=== PATIENT | female | born 1995 | race Caucasian/White ===

== ENCOUNTER 2016-04-06 21:44 | Emergency (ER) | payer OTHER ==
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
[2016-04-07 01:11] VITALS: BP 124/77
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
== END 2016-04-07 01:11 | disposition home or self-care (01) ==
LOC: ED 21:44
DX: S60.229A Contusion of unspecified hand, initial encounter (principal); S00.93XA Contusion of unspecified part of head, initial encounter; M25.519 Pain in unspecified shoulder; V49.9XXA Car occupant (driver) (passenger) injured in unspecified traffic accident, initial encounter; Y93.9 Activity, unspecified; Y92.9 Unspecified place or not applicable; Y99.9 Unspecified external cause status
CPT/HCPCS: 70450; 99283

== ENCOUNTER 2018-01-22 21:07 | Emergency (ER) | payer OTHER ==
[2018-01-22] MEDS ORDERED: NS 0.9% 1000 ML* 1,000 ML IV ONE (22:25)
--- NOTE | 2018-01-22 22:29 | ED ---
GI/ HPI - HPI Summary HPI Summary: 22 year old female presents with intermittent abdominal pain since . Patient states on she induced vomiting and felt better on . The abdominal pain returned today and she has not felt relief. Endorses nausea, upper abdominal pain, a "funny feeling" in her chest, worsening pain with deep breath. Denies fevers, chills, diarrhea, constipation, SOB, headache. unknown if has calf pain. She states the pain today is constant and sharp in nature. She states the pain radiates to her back. Denies urinary symptoms like frequency , urgency, and blood in urine. Patient has history of PCOS, lucero's, and anorexia. uncle had a blood clot. no abnormal vaginal discharge. - History of Current Complaint Chief Complaint: EDAbdPain Time Seen by Provider: 01/22/18 22:08 Stated Complaint: ABD PAIN Pain Intensity: 9 - Allergy/Home Medications Allergies/Adverse Reactions: Allergies Allergy/AdvReac Type Severity Reaction Status Date / Time No Known Allergies Allergy Verified 04/06/16 22:13 Home Medications: Home Medications BuPROPion XL* [Bupropion XL*] 300 mg PO DAILY 01/23/18 [History Confirmed ] FLUoxetine CAP* [Prozac CAP*] 20 mg PO DAILY 01/23/18 [History Confirmed ] Levothyroxine Sodium 150 mcg PO DAILY 01/23/18 [History Confirmed 01/23/18] Metformin HCl [Metformin HCl ER] 500 mg PO QID 01/23/18 [History Confirmed 01/23] PMH/Surg Hx/FS Hx/Imm Hx Endocrine/Hematology History: Reports: Hx Thyroid Disease Denies: Hx Anticoagulant Therapy Cardiovascular History: Denies: Hx Hypertension Infectious Disease History: Yes Infectious Disease History: Denies: Traveled Outside the [place] in Last 30 Days - Family History Known Family History: Negative: Cardiac Disease, Hypertension, Diabetes - Social History Alcohol Use: None Hx Substance Use: No Substance Use Type: Reports: None Hx Tobacco Use: No Smoking Status (MU): Never Smoked Tobacco Review of Systems Negative: Fever Positive: Chest Pain Positive: Shortness Of Breath. Negative: Cough Positive: Abdominal Pain, Vomiting, Nausea. Negative: Diarrhea All Other Systems Reviewed And Are Negative: Yes Physical Exam Triage Information Reviewed: Yes Vital Signs On Initial Exam: Initial Vitals Temp Pulse Resp BP Pulse Ox 98 F 84 18 128/87 98 01/22/18 21:10 01/22/18 21:10 01/22/18 21:10 01/22/18 21:10 01/22/18 21:10 Vital Signs Reviewed: Yes Appearance: Positive: Well-Appearing Skin: Positive: Warm, Dry Head/Face: Positive: Normal Head/Face Inspection Eyes: Positive: Normal, EOMI, JEAN, Conjunctiva Clear ENT: Positive: Normal ENT inspection, Pharynx normal, TMs normal Respiratory/Lung Sounds: Positive: Clear to Auscultation, Breath Sounds Present Cardiovascular: Positive: Normal, RRR Abdomen Description: Positive: Soft, Other: - tenderness epigastric Bowel Sounds: Positive: Present Musculoskeletal: Positive: Normal Neurological: Positive: Normal Psychiatric: Positive: Normal Diagnostics - Vital Signs Vital Signs Temp Pulse Resp BP Pulse Ox 01/22/18 21:10 98 F 84 18 128/87 98 - Laboratory Result Diagrams: 01/22/18 22:27 01/22/18 22:27 Lab Statement: Any lab studies that have been ordered have been reviewed, and results considered in the medical decision making process. - CT chest, abd CT Interpretation Completed By: Radiologist Summary of CT Findings: IMPRESSION: 1. No acute findings in the chest. No pulmonary embolism or aortic aneurysm,. pseudoaneurysm, intramural hematoma, penetrating atherosclerotic ulcer, or. dissection. 2. Dilation of the main pulmonary artery, which can be seen with pulmonary. artery hypertension. - Ultrasound No standard instances Ultrasound Interpretation Completed By: Radiologist Summary of Ultrasound Findings: IMPRESSION: 1. No acute findings. Hepatic steatosis. No shadowing gallstones identified. 2. Pancreas and common bile duct obscured by bowel gas. 3. Study limited by body habitus and bowel gas. To contact [facility] with a general question: Operati - EKG No standard instances Cardiac Rate: NL EKG Rhythm: Sinus Rhythm Summary of EKG Findings: sinus rhythm GIGU Course/Dx - Course Course Of Treatment: 22 year old female presents with abdominal pain and a "funny feeling" in her chest. She states her pain worsens with deep breaths and is unsure if she has calf pain. She has a history of PCOS, anorexia, and lucero's. States she was previously diagnosed with prolonged Q-T. An EKG was ordered and showed NSR with one PVC. D-dimer was elevated and her WBC was elevated. gallbladder u/s normal. got CTA with elevated d-dimer. CTA chest and abd normal. discused will treat for potential uti with macrobid. told to follow up with primary. patient understand and agrees with plan. - Diagnoses Differential Diagnoses - Female: Gall Bladder Disease, Gastroenteritis (Viral), Urinary Tract Infection Provider Diagnoses: UTI (urinary tract infection), Abdominal pain Discharge - Sign-Out/Discharge Documenting (check all that apply): Patient Departure - Discharge Plan Condition: Good Disposition: HOME Prescriptions: Nitrofurantoin Monohyd/M-Cryst [Macrobid 100 mg Capsule] 100 mg PO BID #13 cap Patient Education Materials: Urinary Tract Infection in Women (ED) Referrals: Monisha Stanley MD [Primary Care Provider] - Additional Instructions: take macrobid twice a day Drink small amounts of fluid as tolerated Eat small snacks throughout the days Follow up with primary within 5 days Return to ED if develop any new or worsening symptoms - Billing Disposition and Condition Condition: GOOD Disposition: Home
[2018-01-22 22:44] LABS: ABS Basophils 0 10^3/ul (0-0.2); ABS Eosinophils 0.3 10^3/ul (0-0.6); ABS Lymphocytes 2.8 10^3/ul (1.0-4.8); ABS Monocytes 0.9 10^3/ul (0-0.8); ABS Neutrophils 10.8 10^3/ul (1.5-7.7); ABS Nucleated RBC 0 10^3/ul; Eosinophil % 1.8 %; Hematocrit 41 % (35-47); Hemoglobin 13.8 g/dl (12.0-16.0); Mean Corpuscular HGB Conc 34 g/dl (31-36); Mean Corpuscular Hemoglobin 28 pg (27-31); Mean Corpuscular Volume 84 fL (80-97); Mean Platelet Volume 6.6 fL (7.4-10.4); Nucleated Red Blood Cells % 0; Platelet Count 398 10^3/ul (150-450); Red Blood Count 4.85 10^6/ul (4.00-5.40); Red Cell Distribution Width 13 % (10.5-15); White Blood Count 14.8 10^3/ul (3.5-10.8)
[2018-01-22 22:55] LABS: EGFR Non-African American 83.6 (>60)
[2018-01-22] MEDS ORDERED: Iohexol 350* (CONTRAST) 500 ML MDV IV ONE (23:36)
[2018-01-23 00:44] LABS: Urine Appearance Clear; Urine Blood 1+ (Negative); Urine Color Yellow; Urine Ketones Negative (Negative); Urine Protein Negative (Negative); Urine Red Blood Cell 1+(3-5/hpf) (Absent); Urine Specific Gravity 1.057 (1.010-1.030); Urine Urobilinogen Negative (Negative); Urine White Blood Cell Trace(0-5/hpf) (Absent)
[2018-01-23] MEDS ORDERED: Nitrofurantoin Macrocrystals* 100 MG CAP PO ONE (02:38)
[2018-01-23 03:11] VITALS: BP 131/74
--- NOTE | 2018-01-25 06:25 | PN ---
Progress Note - Progress Note Date of Service: 01/23/18 Note: Urine culture final grew Group B strep and normal lesly. According to her note, patient was denying urgency, frequency, burning with urination or any other UTI symptoms. Due to low colony count, patient will not be treated at this time.
== END 2018-01-23 03:05 | disposition home or self-care (01) ==
LOC: ED 21:07
DX: N39.0 Urinary tract infection, site not specified (principal); R10.9 Unspecified abdominal pain; R07.9 Chest pain, unspecified; R06.02 Shortness of breath; R11.2 Nausea with vomiting, unspecified
CPT/HCPCS: 36415; 71275; 74177; 76705; 80053; 81003; 81015; 83690; 84484; 84702; 85025; 85379; 86140; 87077; 87086; 93005; 96360; 96361; 99283; A9270-GY; Q9967

== ENCOUNTER 2018-04-26 20:46 | Emergency (ER) | payer OTHER ==
[2018-04-26 20:56] VITALS: BP 148/76
[2018-04-26] MEDS ORDERED: Benzonatate CAP* 100 MG PO ONE (22:05)
[2018-04-26] MEDS ORDERED: Oseltamivir CAP* 75 MG CAP PO ONE (22:05)
--- NOTE | 2018-04-26 22:10 | UC ---
FLU HPI - HPI Summary HPI Summary: 23 year old female presents with sudden onset of fever (102), chills, malaise, bodyaches, headache, nasal congestion, runny nose, and a non-productive cough yesterday. Denies ear pain, sore throat, chest pain, shortness of breath, abdominal pain, nausea, vomiting, or diarrhea. - History of Current Complaint Chief Complaint: UCRespiratory Stated Complaint: COUGH Time Seen by Provider: 04/26/18 21:25 Hx Obtained From: Patient Hx Last Menstrual Period: [id number] Pain Intensity: 4 - Allergy/Home Medications Allergies/Adverse Reactions: Allergies Allergy/AdvReac Type Severity Reaction Status Date / Time No Known Allergies Allergy Verified 04/26/18 20:56 Home Medications: Home Medications Dulaglutide [Trulicity] 1.5 mg PO WEEKLY 04/26/18 [History Confirmed 04/26/18] PMH/Surg Hx/FS Hx/Imm Hx Endocrine History: Hypothyroidism Other Endocrine History: PCOS, insulin resistence Psychological History: Depression Other History Of: Negative For: Anticoagulant Therapy - Surgical History Surgical History: None - Family History Known Family History: Negative: Cardiac Disease, Hypertension, Diabetes - Social History Occupation: Employed Full-time Lives: With Family Alcohol Use: Occasionally Substance Use Type: None Smoking Status (MU): Never Smoked Tobacco Review of Systems All Other Systems Reviewed And Are Negative: Yes Constitutional: Positive: Fever, Chills, Fatigue Skin: Negative: Rash Eyes: Negative: Drainage, Eye Redness ENT: Positive: Ear Ache, Nasal Discharge, Sinus Congestion, Sinus Pain/ Tenderness. Negative: Sore Throat Respiratory: Positive: Cough. Negative: Shortness Of Breath Cardiovascular: Negative: Palpitations, Chest Pain Gastrointestinal: Negative: Abdominal Pain, Vomiting, Diarrhea, Nausea Genitourinary: Positive: Negative Musculoskeletal: Positive: Negative Neurological: Positive: Headache Is Patient Immunocompromised?: No Physical Exam Triage Information Reviewed: Yes Appearance: No Pain Distress, Ill-Appearing - Non-toxic, Obese Vital Signs: Initial Vital Signs Temp 99.3 F 04/26/18 20:51 Pulse 124 04/26/18 20:51 Resp 20 04/26/18 20:51 BP 148/76 04/26/18 20:51 Pulse Ox 98 04/26/18 20:51 Vital Signs Reviewed: Yes Eyes: Positive: Conjunctiva Clear. Negative: Discharge ENT: Positive: Hearing grossly normal, Pharyngeal erythema - Mild, Nasal congestion - Moderate, Nasal drainage - Clear, TMs normal, Uvula midline. Negative: Tonsillar swelling, Tonsillar exudate Neck: Positive: Supple, Nontender, No Lymphadenopathy Respiratory: Positive: Lungs clear, Normal breath sounds, No respiratory distress, Other: - Non-productive cough Cardiovascular: Positive: RRR, No Murmur, Pulses Normal, Brisk Capillary Refill , Tachycardia Abdomen Description: Positive: Nontender, No Organomegaly, Soft. Negative: Distended, Guarding Bowel Sounds: Positive: Present Musculoskeletal: Positive: Strength Intact, ROM Intact Neurological: Positive: Alert Skin: Negative: Rashes Flu Course/Dx - Course Course Of Treatment: 23 year old female presents with sudden onset of fever (102 ), chills, malaise, bodyaches, headache, nasal congestion, runny nose, and a non -productive cough yesterday. Denies ear pain, sore throat, chest pain, shortness of breath, abdominal pain, nausea, vomiting, or diarrhea. Afebrile. Hypertensive and tachycardic but otherwise VSS. Exam reveals a young adult female in no acute distress with moderate nasal congestion, clear nasal discharge, mild pharyngeal erythema without tonsilar swelling of exudate, a dry non-productive cough, and otherwise unremarkable exam. Discussed with patient that her symptoms are likely influenza vs viral URI. Discussed risks and benefits of Tamiflu and she is electing to start at this time. First dose given in the clinic. Also recommending symptomatic treatment at this time including Tessalon Perles 1 cap every 8 hours as needed for cough. She is to follow up with her PCP in 7 days if no improvement in symptoms. Anticipatory guidance and warning symptoms reviewed with patient. Verbalizes understanding and agrees with POC. - Differential Dx/Diagnosis Differential Diagnosis/HQI/PQRI: Bronchitis, Influenza, Pneumonia, Upper Respiratory Infection Provider Diagnosis: Influenza Discharge - Sign-Out/Discharge Documenting (check all that apply): Patient Departure All imaging exams completed and their final reports reviewed: No Studies - Discharge Plan Condition: Stable Disposition: HOME Prescriptions: Benzonatate CAP* [Tessalon 100 MG CAP*] 100 mg PO TID PRN #30 cap PRN Reason: Cough Oseltamivir CAP* [Tamiflu CAP*] 75 mg PO BID #9 cap Patient Education Materials: Influenza (ED) Forms: *Work Release Referrals: Monisha Stanley MD [Primary Care Provider] - 7 Days (if no improvement.) Additional Instructions: Your history and exam are consistent with influenza although I cannot rule out another viral infection. Viral infections including the flu typically run their course over 7-10 days with the first 3-5 days being the worst of the symptoms. Start Tamiflu 1 capsule twice a day for 5 days. We gave you the first dose in the clinic. Get plenty of rest. Drink plenty of fluids to avoid dehydration especially if you are running any fever. Take over the counter acetaminophen (Tylenol) or ibuprofen (Advil, Motrin) according to directions as needed for pain or fever. Take Tessalon Perles 1 cap every 8 hours as needed for cough. The first dose was given in the clinic. Use an over the counter decongestant such as Sudafed according to directions for the congestion. Use salt water gargles several times a day if you have a sore throat. You may also use Chloraseptic spray or Cepacol lonzenges according to directions which contain a numbing medication and can provide some temporary relief from your sore throat. Follow up with your primary care provider in 7 days if symptoms persist. Seek immediate medical attention in the emergency room if you have fever greater than 100.5 F despite taking acetaminophen or ibuprofen, have chest pain , difficulty breathing, are unable to swallow, or have any worsening of symptoms. - Billing Disposition and Condition Condition: STABLE Disposition: Home
== END 2018-04-26 22:25 | disposition home or self-care (01) ==
LOC: UCEAST 20:46
DX: J11.1 Influenza due to unidentified influenza virus with other respiratory manifestations (principal)
CPT/HCPCS: 99212; A9270-GY; G0463